=== PATIENT | female | born 1980 | race Caucasian/White ===

== ENCOUNTER 2019-03-14 04:57 | Day surgery (SDC) | payer BC ==
[2019-03-12 16:58] VITALS: BMI 29.7
[2019-03-14] MEDS ORDERED: SUCCINYLCHOLINE CHLORIDE 200 MG/10 ML SYRINGE ONE (09:48)
[2019-03-14] MEDS ORDERED: PROPOFOL 20 ML ONE (09:48)
[2019-03-14] MEDS ORDERED: MIDAZOLAM HCL 2 MG/2 ML SINGLE DOSE VIAL ONE (09:48)
[2019-03-14] MEDS ORDERED: ceFAZolin SODIUM 1 GM VIAL ONE (09:49)
[2019-03-14] MEDS ORDERED: ONDANSETRON 4 MG/2 ML VIAL ONE (09:49)
[2019-03-14] MEDS ORDERED: DEXAMETHASONE SOD PHOSPHATE 4 MG/1 ML VIAL ONE (09:49)
[2019-03-14] MEDS ORDERED: KETOROLAC TROMETHAMINE 30 MG/1 ML VIAL ONE (09:49)
--- NOTE | 2019-03-14 10:25 | HP ---
History & Physical Update - History History: No Change - Physical Physical: No Change - Assessment Assessment: No Change - Plan Plan: No Change
[2019-03-14] MEDS ORDERED: ceFAZolin SODIUM 1 GM VIAL IVPB ONE (10:36)
[2019-03-14] MEDS ORDERED: DESFLURANE GAS 240 ML BOTTLE IH ONE (10:39)
[2019-03-14] MEDS ORDERED: ONDANSETRON 4 MG/2 ML VIAL IVPUSH PRN (11:12)
--- NOTE | 2019-03-14 11:12 | OP ---
Operative Note - Note: Operative Date: 03/14/19 Pre-Operative Diagnosis: Menorrhagia, uterine polyp Operation: Hysteroscopy, D&C Findings: Normal uterine cavity Post-Operative Diagnosis: Other (Menorrhagia) Surgeon: Jean Romero Anesthesiologist/DEVELOPMENTAL TRAINING COUNSELOR: Gonzalo Patterson Anesthesia: General Specimens Removed: Endometial curettings Estimated Blood Loss (mls): 5 Blood Volume Replaced (mls): 0 Fluid Volume Replaced (mls): 400 Operative Report Dictated: Yes
--- NOTE | 2019-03-14 12:06 | OP ---
DATE OF OPERATION: 03/14/2019 PREOPERATIVE DIAGNOSIS: Menorrhagia, uterine polyp. POSTOPERATIVE DIAGNOSIS: Menorrhagia. PROCEDURE: Hysteroscopy, dilation and curettage. SURGEON: Tino Kimbrough MD SYSTEMS TECHNOLOGIST: None. ANESTHESIA: Gonzalo Patterson MD, general. COMPLICATIONS: None. ESTIMATED BLOOD LOSS: 5 mL. INTRAVENOUS FLUIDS: 400 mL. PATHOLOGY: Uterine curettings. FINDINGS: Examination under anesthesia revealed a small, retroverted uterus with no pelvic or adnexal masses. Hysteroscopy revealed a normal uterine cavity with no lesions or polyps. DESCRIPTION OF PROCEDURE: The patient was met preoperatively. Risks, benefits, and alternatives of surgery were discussed in details. All questions were answered. The consent form was reviewed and discussed. The patient verbalized her understanding and requested to proceed with the surgery. The patient was brought to the OR with the IV running. She was placed on a surgical table in the supine position. The general anesthesia was achieved without difficulty. The patient was then placed in a dorsal lithotomy position using adjustable Miguel Angel stirrups. She was prepped and draped in the usual sterile fashion. A time-out was conducted as per standard protocol. The surgeon then proceeded with the operation. A weighed speculum was introduced inside the vagina with good visualization of the cervix. The cervix was grasped and stabilized with a single-tooth tenaculum. A 3-mm diagnostic hysteroscope was then introduced through the cervical canal and into the uterine cavity. The uterine cavity was within normal limits. There were no lesions or polyps noted. The hysteroscope was then removed. The endocervical canal was dilated to accommodate the size 23 Gama dilator. A sharp uterine curettage was then performed. The tissue was submitted to Pathology. Once this was completed, all the instruments were removed from the patient. Good hemostasis was noted. The patient was returned to supine position. Sponge, lap, instrument counts are correct, and the patient was transferred to recovery room in stable condition and awake. TINO KIMBROUGH M.D. [id number]
[2019-03-14 13:24] VITALS: BP 96/64; PULSE 66; TEMP 98.4
== END 2019-03-14 13:20 | disposition home or self-care (01) ==
LOC: JASU-SURG 04:57
PROVIDERS: ATTEND Obstetrics & Gynecology
PROC: 0UDB7ZX Extraction of Endometrium, Via Natural or Artificial Opening, Diagnostic (ICD-10-PCS; principal; 2019-03-14 10:30)
PROC: 0UJD8ZZ Inspection of Uterus and Cervix, Via Natural or Artificial Opening Endoscopic (ICD-10-PCS; 2019-03-14 10:30)
DX: N92.0 Excessive and frequent menstruation with regular cycle (principal)
CPT/HCPCS: 94760